=== PATIENT | female | born 1980 | race Caucasian/White ===

== ENCOUNTER 2017-03-18 13:29 | Day surgery (SDC) | payer BC, OTHER ==
[~2017-03-18] VITALS: Ht 162.6 cm; Wt 95.3 kg
[~2017-03-18 13:29] MED LIST: no medications
[2017-03-18] MEDS ORDERED: ACETAMINOPHEN 650 MG SUPP PR ONE (13:45)
[2017-03-18] MEDS ORDERED: LR 1,000 ML IV ONE (13:45)
[2017-03-18 14:08] LABS: CONTROL LINE HCG INT CTR LINE PRESENT
[2017-03-18 14:18] LABS: ANION GAP 6 MEQ/L (8-16); BLOOD UREA NITROGEN 9 MG/DL (7-18); CALCIUM LEVEL 8.6 MG/DL (8.5-10.1); CARBON DIOXIDE LEVEL 28 MEQ/L (21-32); CHLORIDE LEVEL 108 MEQ/L (98-107); CREATININE FOR GFR 0.75 MG/DL (0.55-1.02); GLOMERULAR FILTRATION RATE > 60.0 (>60); GLUCOSE, FASTING 80 MG/DL (70-105); SODIUM LEVEL 142 MEQ/L (136-145)
[2017-03-18 14:34] LABS: WHITE BLOOD COUNT 7.8 K/mm3 (4.0-10.0)
[2017-03-18 14:35] LABS: MEAN CORPUSCULAR HEMOGLOBIN 29.4 pg (27.0-33.0); MEAN CORPUSCULAR HGB CONC 33.8 g/dl (32.0-36.5); MEAN CORPUSCULAR VOLUME 87.2 fl (80.0-96.0); RED CELL DISTRIBUTION WIDTH 12.8 % (11.5-14.5)
[2017-03-18] MEDS ORDERED: PROPOFOL 200 MG/20 ML VIAL As Ordered ONE (15:00)
[2017-03-18] MEDS ORDERED: LIDOCAINE 2% INJ 100 MG/5 ML SDV (FOR ANES.) As Ordered ONE (15:00)
[2017-03-18] MEDS ORDERED: ROCURONIUM BROMIDE 50 MG/5 ML VIAL As Ordered ONE ×2 (15:00→17:24)
[2017-03-18] MEDS ORDERED: ONDANSETRON 4MG/2ML VIAL (J2405) As Ordered ONE ×2 (15:00→17:41)
[2017-03-18] MEDS ORDERED: fentaNYL 100 MCG/2 ML INJECTION (J3010) As Ordered ONE ×2 (15:01→16:48)
[2017-03-18] MEDS ORDERED: MIDAZOLAM INJ 2 MG/2 ML VIAL (J2250) As Ordered ONE (15:01)
[2017-03-18] MEDS ORDERED: SCOPOLAMINE 1.5 MG TRANSDERMAL As Ordered ONE (15:44)
[2017-03-18] MEDS ORDERED: SCOPOLAMINE 1.5 MG TRANSDERMAL TOP ONE (15:45)
[2017-03-18] MEDS ORDERED: FLUORESCEIN 10% (100MG/ML) 5 ML VIAL As Ordered ONE (15:58)
[2017-03-18] MEDS ORDERED: BUPIVACAINE/EPIN 0.25% 30 ML VIAL As Ordered ONE (15:58)
[2017-03-18] MEDS ORDERED: ACETAMINOPHEN 650 MG SUPP As Ordered ONE (15:58)
[2017-03-18] MEDS ORDERED: KETOROLAC 60 MG/2 ML VIAL (J1885) As Ordered ONE ×2 (16:19→17:41)
[2017-03-18] MEDS ORDERED: SUCCINYLCHOLINE 100 MG/5 ML SYRINGE (J0330) As Ordered ONE (16:22)
[2017-03-18] MEDS ORDERED: dexameTHASONE 4 MG/ML 1ML VIAL (J1100) As Ordered ONE (16:23)
[2017-03-18] MEDS ORDERED: HYDROmorphone HCL 2 MG/ML 1ML VIAL (J1170) As Ordered ONE (17:36)
[2017-03-18] MEDS ORDERED: SUGAMMADEX SODIUM 500 MG/5 ML VIAL (BRIDION) As Ordered ONE (18:35)
[2017-03-18] MEDS ORDERED: PERC5TAB6 PO (19:07)
[2017-03-18] MEDS ORDERED: fentaNYL 100 MCG/2 ML INJECTION (J3010) IV PRN (19:30)
[2017-03-18] MEDS ORDERED: LR 1,000 ML IV SCH ×2 (19:30)
[2017-03-18] MEDS ORDERED: ONDANSETRON 4MG/2ML VIAL (J2405) IV PRN (19:30)
[2017-03-18] MEDS ORDERED: HYDROmorphone HCL 1 MG/ML SYRINGE (J1170) IV PRN (19:30)
[2017-03-18 20:15] VITALS: BP 144/80
[2017-03-18] MEDS: PERCOCET 5MG/325MG TAB PO PRN (20:31)
[2017-03-18 20:45] VITALS: BP 132/75
[2017-03-18 21:45] VITALS: BP 121/71
[2017-03-18 23:00] VITALS: BP 125/70
[2017-03-19] MEDS ORDERED: ONDANSETRON 4MG/2ML VIAL (J2405) IV PRN
[2017-03-19] MEDS: SIMETHICONE 80 MG CHEW TAB PO SCH ×2 (00:56→06:30)
[2017-03-19] MEDS: IBUPROFEN 800 MG TAB PO SCH ×2 (00:57→06:30)
[2017-03-19 02:33] VITALS: BP 115/67
[2017-03-19 05:58] VITALS: BP 110/61
[2017-03-19] MEDS: PERCOCET 5MG/325MG TAB PO PRN (07:56)
[2017-03-19] MEDS ORDERED: IBUP-1114 PO (09:46)
--- NOTE | 2017-03-19 20:34 | RO ---
DATE OF PROCEDURE: 03/18/2017 Radha is a 36-year-old female with an extensive history of excessive menstrual cycle, pelvic pain. She had a section times two. After counseling in the office, a decision was made for a robotic-assisted laparoscopic hysterectomy , removal of both tubes. PREOPERATIVE DIAGNOSIS: 1. Excessive menstruation 2. Pelvic pain. 3. section times two. POSTOPERATIVE DIAGNOSIS: 1. Excessive menstruation 2. Pelvic pain. 3. section times two. 4. Dense bladder and ovarian adhesions. PROCEDURE: 1. Robotic-assisted total laparoscopic hysterectomy. 2. Bilateral salpingectomies 3. Extensive lysis of adhesions. 4. Cystoscopy. SURGEON: Dr. Filemon Kang DIETARY SERVER: Kayleigh Sue ANESTHESIA: General: COMPLICATIONS: None. ESTIMATED BLOOD LOSS: Less than 100 mL. FINDINGS: The uterus was enlarged, sounded to approximately 10 cm in size. The fallopian tubes were adherent to the sidewall as well as the ovary. The bladder was found to be extensively adherent to the lower uterine segment . On cystoscopy, bilateral ureteral jets were noted with dye coming out of both ureters. No evidence of any bladder injury noted. The bladder was retrograde filled during the surgery and no evidence of bladder injury also noted at that time. DESCRIPTION OF PROCEDURE: After obtaining informed consent, the patient was taken to the operating room where general anesthetic was found be adequate. She was then draped and prepped in the usual sterile fashion in dorsal lithotomy position. At this point, a Benavides catheter was placed in the bladder for drainage. We then placed a HUMI II uterine manipulator. Attention was then turned to the abdomen where a 10 mm supraumbilical incision was made, using the Veress needle, the abdomen was insufflated with CO2 gas to approximately 3.5 liters. Then, a 10/11 mm trocar was inserted under direct visualization. We then placed two 8 mm left lateral ports with one 8 mm right lateral port for robotic arm, one too in the assist port. At this point, the patient was placed in steep Trendelenburg. The robot was brought to the patient's right side at a 45 degrees angle and docked in the usual fashion. After proper docking of the robot, we then placed an Endo Shear in arm one and a bipolar grasper in arm two. I then unscrubbed and went over to the surgeon console and began the surgery. Using the Endo Shear and a bipolar grasper, I freed up the fallopian tube off the pelvic sidewall. The mesosalpinx was transected all the way down to the utero-ovarian ligament. At this point, the utero-ovarian ligament was cauterized and cut using the bipolar grasper and the Endo Shear. The round ligament was cauterized and cut in a similar fashion. The anterior leaflet of the round ligament was dissected to create a bladder flap. However, the bladder was found to be extensively adherent to the lower uterine segment. We could not complete the bladder flap from an anterior approach. At this point, the bladder was retrograde filled with normal saline. I then went to the other side and did a similar procedure with the fallopian tube, taking down the fallopian tube down to the utero-ovarian ligament and those were cauterized and cut, the round ligament also cauterized and cut. We were able to cauterize the uterine artery at this point and cut it. The opposite side was done in similar fashion. Given that we were not able to approach from an anterior position, I then created the posterior colpotomy and was able to follow that through and dissect the bladder off the lower uterine segment without any bladder injury. At this point, the anterior colpotomy was completed. The uterus and fallopian tubes were removed through the vagina. The uterus was left in the vagina to maintain pneumoperitoneum. At this point, the pelvis was copiously irrigated with normal saline. Good hemostasis noted. The Endo Shear removed and a needle rail car driver was placed, a 2-0 V-Loc suture was inserted and the vaginal cuff was closed in a running fashion using the 2-0 V-Loc suture in two separate segments. Pelvis again copiously irrigated with normal saline. 1 mL of fluorescein was given by the anesthesiologist to assess the cystoscopy. I then scrubbed back in, went to the patient's side, retrograde filled the bladder with 250 mL of normal saline. Benavides catheter removed, a cystoscopy performed. Bilateral ureteral jets noted. No evidence of any bladder injury noted. At this point, the Benavides catheter was replaced back in the bladder and drain, the robot completely undocked and the laparoscopic ports were closed using 0 Vicryl in the fascia and 3-0 Vicryl on the skin, 0.25% Marcaine was placed. Dermabond placed. The patient tolerated the procedure well. She was then transferred to recovery room in stable condition. Copy To: [facility]
== END 2017-03-19 11:10 | disposition home or self-care (01) ==
LOC: M SDC 13:29 → M OBS 19:50 → M SDC 03-19 11:10
PROVIDERS: ATTEND Obstetrics & Gynecology
DX: N92.1 Excessive and frequent menstruation with irregular cycle (principal); R10.2 Pelvic and perineal pain; N32.89 Other specified disorders of bladder; N73.6 Female pelvic peritoneal adhesions (postinfective); D64.9 Anemia, unspecified; I89.0 Lymphedema, not elsewhere classified; Z88.8 Allergy status to other drugs, medicaments and biological substances
CPT/HCPCS: 36415; 58571; 80048; 84703; 85027; 86850; 86900; 86901; 88307; 96361; 96374; J0330; J0690; J1100; J1170; J1885; J2250; J2405; J3010

== ENCOUNTER → 2018-10-15 | Outpatient (REF) | payer OTHER, MEDICAID ==
[~2018-10-15] MED LIST changes: +IBUP-1114 PO; +PERC5TAB12 PO
== END ==
LOC: M LAB REF 09:03
PROVIDERS: ATTEND Ophthalmology
DX: D23.122 Other benign neoplasm of skin of left lower eyelid, including canthus (principal)